=== PATIENT | female | born 1960 | race Two or more races ===

== ENCOUNTER 2024-04-12 09:24 | Emergency (ER) | payer MEDICAID, SELFPAY ==
[2024-04-12 09:41] VITALS: BP 135/85; PULSE 98; RESP 16; TEMP 36.7; O2SAT 96
--- NOTE | 2024-04-12 09:41 | EKG_ITS ---
[facility] Test Date: 2024-04-12 Pat Name: IAIN VARELA Department: Room: - Gender: Female [employer]: : 1960 Requested By: ED Temporary Provider Order Number: [id number] Reading MD: ED Temporary Provider Measurements Intervals [place] Rate: 77 P: 51 GA: 146 QRS: 51 QRSD: 94 T: 37 QT: 352 QTc: 399 Interpretive Statements SINUS RHYTHM Compared to ECG 10/18/2019 10:19:50 No significant changes /store/S0/[id number].pdf
[2024-04-12 09:42] VITALS: BMI 25.1
--- NOTE | 2024-04-12 10:11 | EDNOTE_ITS ---
ED Syncope RME/HPI General Chief Complaint: Syncope / Near Syncope Stated Complaint: SYNCOPE Time Seen by Provider: 04/12/24 10:00 Arrival date/time: 04/12/24 09:24 RME / HPI RME / HPI narrative: 64 year old female with history of hypertension, hyperlipidemia presents to the ED brought from the ICU for evaluation of syncopal episode today. Patient states she was visiting her father who while she was in the room. States she felt very light headed and lost consciousness. States she initially did not have any pain however since arriving to the ED has pain to the back of her neck and chest. No other associated symptoms or complaints reported. Denies fevers, chills, cough, shortness of breath, n/v, abdominal pain. Related Data Home Medications ?Medication ?Instructions ?Recorded ?Confirmed cetirizine 10 mg tablet 10 mg PO QDAY 10/18/19 10/25/19 fluticasone propionate 50 2 spray intranasal QDAY 10/18/19 10/25/19 mcg/actuation nasal spray,suspension indapamide 1.25 mg tablet 1.25 mg PO QAM 10/18/19 10/26/19 omeprazole 40 mg capsule,delayed 40 mg PO QDAY 10/18/19 10/25/19 release atorvastatin 10 mg tablet 10 mg PO QDAY 10/25/19 10/25/19 Previous Rx's ?Medication ?Instructions ?Recorded hydrocodone 5 mg-acetaminophen 325 1 tab PO QID PRN pain #20 tabs 10/26/19 mg tablet Allergies Allergy/AdvReac Type Severity Reaction Status Date / Time ranitidine Allergy Intermediate Gastrointestinal Verified 10/26/19 12:11 Upset tramadol Allergy Intermediate Gastrointestinal Verified 10/26/19 12:11 Upset Review of Systems Review of Systems Narrative Review of Systems: Gen: No fever, no chills, no weight loss EYES: No discharge, no visual changes, no pain HEENT: No ear pain, no congestion, no sore throat PULM: no shortness of breath, no cough, no congestion CV: + chest pain, no dyspnea on exertion, no palpitations, no chest tightness GI: No nausea, no vomiting, no diarrhea, no pain, no constipation : No frequency, no urgency,? no dysuria Musc/skel: +neck pain, no back pain Skin: No rash, no ecchymosis, no lesions Psyc: No hallucinations, no depression Heme/Lymph: No easy bleeding or bruising tendencies Neuro: No weakness, no headache Past Medical History Past Medical History NEUROLOGIC: Positive Migraine CARDIAC: Positive Cardiac Disorders, Hypercholesterolemia (TAKES MED), Conges tive Heart Failure (2016 HOSPITALIZED FOR A WEEK AT [facility]), Hypertension (TAKES MED) and Varicose Veins (NOT DIAGNOSE) RESPIRATORY: Positive Tuberculosis (TREATED ) GASTROINTESTINAL: Positive Gastrointestinal Disorders and Hemorrhoids REPRODUCTIVE: Positive Previous Pregnancies (X7) MUSCULOSKELETAL: Positive Musculoskeletal Disorders and Arthritis Family History FAMILY HISTORY: Positive Family Cardiac Disorders (MOTHER,BROTHER(HTN)) Surgical History SURGICAL: Positive Eye Surgery (LEFT EYE), Hysterectomy ([facility]KI [facility]), Tubal Ligation and Section (X2) Social History SMOKING STATUS: Never smoker ED Exam Narrative Physical exam: GENERAL APPEARANCE: AxOx4, no obvious distress, nontoxic appearing HEENT: NC, AT. MMM. EOMI, clear conjunctiva, oropharynx clear. NECK: Supple without lymphadenopathy. No stiffness or restricted ROM. HEART: Normal rate and regular rhythm, normal S1/S1, no m/r/g LUNGS: CTAB, moving air well. No crackles or wheezes are heard. ABDOMEN: Soft, nontender, nondistended with good bowel sounds heard. BACK: No midline C/T/L spine pain or deformity, No CVAT, no obvious deformity. EXTREMITIES: Without cyanosis, clubbing or edema. MUSCULOSKELETAL: FROM of all major joints, no chest tenderness NEUROLOGICAL: Grossly nonfocal. Alert and oriented, moving all 4 extremities. CN not formally tested but appear grossly intact. Skin: Warm and dry without any rash. Course Quality Measures none Orders Category Date Time Status EKG (ED ONLY) *Do not use* NOW Care 04/12/24 09:41 Completed EKG (ED ONLY) *Do not use* NOW Care 04/12/24 10:07 Completed EKG (ED Only) Stat Exams 04/12/24 09:41 Draft EKG (ED Only) Stat Exams 04/12/24 10:07 Ordered CBC Stat Lab 04/12/24 10:34 Completed CMP [Comprehensive Metabolic Panel] Stat Lab 04/12/24 10:34 Completed Troponin I Stat Lab 04/12/24 10:34 Completed Reevaluation(s) Reevaluation #1: Patient remains clinically stable throughout the emergency department visit. We reviewed all the results, analysis, and treatment plans. Patient is amenable to discharge. Strict return precautions were outlined. Patient was discharged in stable condition. Time: 12:10 Vital Signs Vital signs: Vital Signs Temperature 98.1 F 04/12/24 09:41 Pulse Rate 98 04/12/24 09:41 Respiratory Rate 16 04/12/24 09:41 Blood Pressure 135/85 H 04/12/24 09:41 Pulse Oximetry (%) 96 04/12/24 09:41 Oxygen Delivery Method Room Air 04/12/24 09:41 Pulse ox is 96% on room air which is adequate. Syncope MDM Narrative MDM Narrative:: Yvonne Lamb am scribing for and in the presence of Dr. Hilton. Patient data External records reviewed:: [facility] previous records (I reviewed H&P on 10/26/2019) Clinical information provided by:: patient Social determinants that could affect healthcare access:: none Patient has the following chronic illnesses:: HTN, HLD How is presenting disease/condition affected by chronic disease/condition?: exacerbated by Evaluation data The following diagnostics were reviewed and interpreted by me:: lab results and EKG tracing(s) (Sinus rhythm, rate 77, normal axis, normal interval, no acute ST or T-wave changes, no STEMI. ) Lab and/or radiology exams considered but not ordered:: None Interpretation Summary: As noted above Medications / Prescriptions Medications or Prescriptions considered but not ordered:: None Medication administrations:: None Consultations Consultation(s) initiated? (list below): No Diagnosis Syncope Differential Diagnosis: syncope due to orthostatic hypotension, vasovagal syncope and dehydration Most likely diagnosis given after review of the tests above:: Anxiety Admission Indicated Admission indicated?: not indicated Admission Request Was there a request for admission?: No Disposition Plan Disposition Plan: Discharge Discharge Attestation Discharge Attestation: The patient and all family members were given an opportunity to ask questions and understood the discharge instructions. Discharge instructions specifically effects, indications for sooner follow up or return to the emergency department, and the expected course of current diagnosis. Patient condition: Stable Discharge Plan Plan Patient Disposition: HOME (Self Care) Prescriptions/Referrals Prescriptions/Med Rec: No Action cetirizine 10 mg Tablet 10 mg PO QDAY omeprazole 40 mg Capsule,Delayed Release(Dr/Ec) 40 mg PO QDAY indapamide 1.25 mg Tablet 1.25 mg PO QAM fluticasone propionate 50 mcg/actuation [place],Suspension 2 spray INTRANASAL QDAY atorvastatin 10 mg Tablet 10 mg PO QDAY hydrocodone-acetaminophen 5-325 mg tablet 1 tab PO QID MDD 4 PRN (Reason: pain) Qty: 20 0RF Referrals: Ada Leo FNP [Primary Care Provider] - In 1 week Problem List Clinical Impression: Anxiety Patient/Caregiver Discharge Instructions Education Materials: ED Anxiety Reaction Additional Instructions: Follow up with your doctor as needed. Return if your symptoms worsen. Print Language: Luxembourgish Stand Alone Forms: Candy Award Info., Patient Portal Info Letter
[2024-04-12 10:50] LABS: Basophils % (Auto) 1 % (0-2.5); Eosinophils % (Auto) 0 % (0-10); Hematocrit 39.6 % (36.0-46.0); Hemoglobin 13.6 g/dL (12.0-16.0); Immature Granulocytes % (Auto) 0 % (0-0); Immature Granulocytes Auto 0.01 Thou/mm3 (0.00-0.00); Lymphocytes # (Auto) 1.1 Thou/mm3 (1.0-4.8); Lymphocytes % (Auto) 19 % (10-50); Mean Corpuscular HGB Conc 34.3 g/dl (31.0-37.0); Mean Corpuscular Hemoglobin 30.9 pg (25.0-35.0); Mean Corpuscular Volume 90 fL (80-100); Monocytes # (Auto) 0.5 Thou/mm3 (0.0-0.8); Monocytes % (Auto) 8 % (0-12); Neutrophils # (Auto) 4.1 Thou/mm3 (1.8-7.7); Neutrophils % (Auto) 72 % (37-80); Nucleated Red Blood Cell % 0 /100 WBC (0); Platelet Count 288 Thou/mm3 (140-440); RDW Standard Deviation 39.4 fL (36.4-46.3); White Blood Count 5.7 Thou/mm3 (3.6-11.0)
[2024-04-12 11:08] LABS: Alanine Aminotransferase 12 U/L (10-49); Albumin, Serum 4.7 gm/dL (3.4-4.8); Albumin/Globulin Ratio 1.7 (1.2-2.2); Alkaline Phosphatase 127 U/L (46-116); Anion Gap 8 (7-16); Aspartate Amino Transferase 20 U/L (0-34); BUN/Creatinine Ratio 13 Ratio (12-20); Bilirubin,Total 0.9 mg/dL (0.3-1.2); Blood Urea Nitrogen 13 mg/dL (9-23); Calcium 10.5 mg/dL (8.3-10.6); Calcium (Corrected) 10.5 mg/dL (8.5-10.1); Carbon Dioxide 27.2 mMol/L (20.0-31.0); Chloride 102 mMol/L (98-107); Globulin 2.8 gm/dL (2.3-3.5); Glucose 93 mg/dL (74-106); Osmolality,Calculated 273 (275-295); Potassium 3.8 mMol/L (3.4-5.1); Sodium 137 mMol/L (136-145); Total Protein 7.5 gm/dL (5.7-8.2); Troponin I < 0.002 ng/mL (0.0-0.045); eGFR > 60 See Note
== END 2024-04-12 12:29 | disposition home or self-care (01) ==
PROVIDERS: Emergency Provider Emergency Medicine; PCP Nurse Practitioner Family
DX: F41.9 Anxiety disorder, unspecified (principal); I11.0 Hypertensive heart disease with heart failure; I50.9 Heart failure, unspecified; E78.00 Pure hypercholesterolemia, unspecified
CPT/HCPCS: 36415; 80053; 84484; 85025; 93005; 99283